=== PATIENT | female | born 1980 | race African-American/Black ===

== ENCOUNTER 2020-09-12 17:46 | Emergency (ER) | payer OTHER ==
[~2020-09-12] VITALS: Ht 157.5 cm; Wt 110.0 kg
[2020-09-12 19:22] VITALS: BP 120/94
== END 2020-09-12 20:15 | disposition home or self-care (01) ==
LOC: EMS 17:46
DX: L03.116 Cellulitis of left lower limb (principal)
CPT/HCPCS: 99283

== ENCOUNTER 2024-10-02 07:43 | Emergency (ER) | payer OTHER ==
[~2024-10-02] VITALS: Ht 157.5 cm; Wt 59.1 kg
[2024-10-02 07:46] VITALS: TEMP 98.1
[2024-10-02 08:07] VITALS: BP 126/74; PULSE 88; RESP 18; O2SAT 98
[2024-10-02] MEDS: ACETAMINOPHEN 500 MG TABLET PO ONE (08:27)
[2024-10-02] MEDS: DEXAMETHASONE 4 MG TABLET PO ONE (08:27)
[2024-10-02 08:28] LABS: COVID AG,FIA SOURCE NASAL SWAB
[2024-10-02] MEDS: PSEUDOEPHED/CETIRIZINE 120-5MG ER TABLET PO ONE (08:36)
[2024-10-02 08:53] LABS: SARS-COV2 (COVID) ANTIGEN,FIA Negative (Negative)
[2024-10-02 08:54] LABS: INFLUENZA TYPE A NEGATIVE FOR TYPE A (NEGATIVE); INFLUENZA TYPE B NEGATIVE FOR TYPE B (NEGATIVE)
[2024-10-02] MEDS ORDERED: BENZ-227 PO (09:26)
[2024-10-02] MEDS ORDERED: PRED-554 PO (09:26)
== END 2024-10-02 09:38 | disposition home or self-care (01) ==
LOC: EMS 07:43
DX: J40 Bronchitis, not specified as acute or chronic (principal); R05.9 Cough, unspecified; F12.90 Cannabis use, unspecified, uncomplicated; F32.A Depression, unspecified; F17.210 Nicotine dependence, cigarettes, uncomplicated; Z91.041 Radiographic dye allergy status; Z88.6 Allergy status to analgesic agent; Z91.040 Latex allergy status; Z72.89 Other problems related to lifestyle; Z20.822 Contact with and (suspected) exposure to COVID-19
CPT/HCPCS: 99284; 71045; 87426; 87804; J8540

== ENCOUNTER 2025-03-19 04:19 | Emergency (ER) | payer OTHER ==
[~2025-03-19] VITALS: Ht 157.5 cm; Wt 59.1 kg
[~2025-03-19 04:19] MED LIST: BENZ-227 PO; PRED-554 PO
[2025-03-19 05:08] LABS: PLATELET COUNT (AUTO) 246 K/uL (150-450); RED BLOOD CELL COUNT(AUTO) 4.36 MIL/uL (4.00-5.20); RED CELL DISTRIBUTION WIDTH 13.8 % (11.5-14.5); WHITE BLOOD COUNT (AUTO) 5.0 K/uL (4.5-11.0)
[2025-03-19 05:20] LABS: APPEARANCE,URINE CLEAR (CLEAR); GLUCOSE, URINE (UA) NEGATIVE (NEGATIVE); LEUKOCYTE ESTERASE ,URINE NEGATIVE (NEGATIVE); NITRATE,URINE NEGATIVE (NEGATIVE); OCCULT BLOOD,URINE NEGATIVE (NEGATIVE); SPECIFIC GRAVITIY, URINE 1.024 (1.003-1.030)
[2025-03-19 05:21] LABS: CALCIUM, TOTAL 8.6 mg/dL (8.8-10.5); CREATININE 0.77 mg/dL (0.60-1.30); GLOMERULAR FILTR. RATE CALC > 60 mL/min (>60); GLUCOSE,RANDOM 62 mg/dL (70-110); SODIUM SERUM 143 mmol/L (136-145); UREA NITROGEN, BLOOD 8 mg/dL (7-18)
[2025-03-19 05:29] LABS: ASPARTATE AMINOTRANSFERASE 20 U/L (15-37); HCG,QUANTITATIVE < 1 mIU/mL (0-6); TOTAL PROTEIN, SERUM 6.8 g/dL (6.4-8.2)
[2025-03-19] MEDS: LIDOCAINE 5% TRANSDERMAL PATCH TD ONE (06:19)
[2025-03-19] MEDS ORDERED: TRAM50TA5 PO (06:28)
[2025-03-19 06:51] VITALS: BP 134/75; PULSE 76; RESP 18; TEMP 97.3; O2SAT 98
== END 2025-03-19 07:00 | disposition home or self-care (01) ==
LOC: EMS 04:19
DX: S39.012A Strain of muscle, fascia and tendon of lower back, initial encounter (principal); R10.31 Right lower quadrant pain; F31.9 Bipolar disorder, unspecified; F12.90 Cannabis use, unspecified, uncomplicated; F17.210 Nicotine dependence, cigarettes, uncomplicated; Z79.52 Long term (current) use of systemic steroids; Z88.6 Allergy status to analgesic agent; Z88.8 Allergy status to other drugs, medicaments and biological substances; Z91.040 Latex allergy status; Z98.890 Other specified postprocedural states; Z79.899 Other long term (current) drug therapy; X58.XXXA Exposure to other specified factors, initial encounter; Y93.89 Activity, other specified; Y92.89 Other specified places as the place of occurrence of the external cause; Y99.8 Other external cause status
CPT/HCPCS: 80048; 80076; 81003; 83690; 84702; 85025; 99283